=== PATIENT | male | born 1960 | race Caucasian/White ===

== ENCOUNTER 2019-04-25 01:40 | Emergency (ER) | payer BC, OTHER ==
[2019-04-25 01:48] VITALS: BP 139/87; PULSE 102; TEMP 98.1; BMI 35.3
--- NOTE | 2019-04-25 02:11 | PDOC ---
History of Present Illness - General Chief Complaint: Injury Stated Complaint: FALL Time Seen by Provider: 04/25/19 01:44 History Source: Patient Exam Limitations: No Limitations - History of Present Illness Initial Comments: 04/25/19 02:06 59 yo M s/p fall down 5 steps. states tripped over last step in the dark hit his head on the wall. no loc does not take any aspirin or other blood thinners. happened 2 hours ago. no loc no n/v no weakness. no neck or back pain. has chronic back pain, no new sxs. had one glass of wine earlier this evening. no other complaints. last tetanus 4 yrs ago Past History - Past Medical History Allergies/Adverse Reactions: Allergies Allergy/AdvReac Type Severity Reaction Status Date / Time No Known Allergies Allergy Unverified 04/25/19 01:41 Home Medications: Ambulatory Orders Amlodipine Besylate [Norvasc -] 15 mg PO DAILY 04/25/19 Hydrochlorothiazide [Hctz -] 12.5 mg PO DAILY 04/25/19 Lisinopril 10 mg PO DAILY 04/25/19 COPD: No HTN: Yes - Surgical History Abdominal Surgery: Yes (UMBLILICAL HERNIA REPAIR) - Immunization History Immunization Up to Date: Yes - Suicide/Smoking/Psychosocial Hx Smoking History: Never smoked Review of Systems - Review of Systems Constitutional: No: Chills, Diaphoresis HEENTM: No: Eye Pain Respiratory: No: Cough, Orthopnea Cardiac (ROS): No: Chest Pain Musculoskeletal: No: Back Pain, Joint Pain Integumentary: Yes: Other (laceration). No: Bruising All Other Systems: Reviewed and Negative *Physical Exam - Vital Signs Last Vital Signs Temp Pulse Resp BP Pulse Ox 98.1 F 102 H 16 139/87 98 04/25/19 01:44 04/25/19 01:44 04/25/19 01:44 04/25/19 01:44 04/25/19 01:44 - Physical Exam Comments: 04/25/19 02:07 awake alert lungs clear bilat heart rrr no mrg abd soft nt nd et wwp. left knee superficial eccymosis. abrasion. FROM no laxity.; hips pelvis stable from. no midline spinal tenderness. left forehead abrasion , laceration to eyebrow 3 cm, superficial . EOMI. GCS 15 Medical Decision Making - Medical Decision Making 04/25/19 02:08 59 yo male s/p trip and fall down 5 steps. here with laceration to left eyebrow. deneis blood thinners. no loc. happened 2 hrs ago. last tetanus 4 yrs ago. stitches x 3 to eye brow lac. no bony step off. *DC/Admit/Observation/Transfer Diagnosis at time of Disposition: Laceration - Discharge Dispostion Disposition: HOME Condition at time of disposition: Improved Decision to Admit order: No - Referrals Referrals: Jeevan Schneider [Primary Care Provider] - - Patient Instructions Printed Discharge Instructions: DI for Laceration Repair Additional Instructions: use bacitracin to wound twice daily. keep clean and dry for 2 days. return for redness swelling or any signs of infection. you were given 3 sutures today. return for suture removal in 5 days. - Post Discharge Activity
== END 2019-04-25 02:14 | disposition home or self-care (01) ==
LOC: FER 01:40
DX: S01.112A Laceration without foreign body of left eyelid and periocular area, initial encounter (principal); W18.39XA Other fall on same level, initial encounter; Y93.89 Activity, other specified; Y92.009 Unspecified place in unspecified non-institutional (private) residence as the place of occurrence of the external cause; I10 Essential (primary) hypertension
CPT/HCPCS: 99281-25

== ENCOUNTER 2019-05-05 16:44 | Emergency (ER) | payer BC | END 2019-05-05 17:16 | disposition home or self-care (01) | LOC: FER 16:44 ==

== ENCOUNTER 2020-08-03 19:42 | Emergency (ER) | payer BC | END 2020-08-03 20:09 | disposition home or self-care (01) | LOC: JVIRT 19:42 | DX: Z03.818 Encounter for observation for suspected exposure to other biological agents ruled out (principal) | CPT/HCPCS: C9803; Q3014-GT; U0003 ==

== ENCOUNTER 2024-01-17 17:15 | Emergency (ER) | payer BC ==
[2024-01-17 17:45] VITALS: TEMP 98.3; BMI 34.3
[2024-01-17] MEDS: SODIUM CHLORIDE 1,000 ML IV STA (18:00)
[2024-01-17 18:08] LABS: HEMATOCRIT 44.4 % (35.4-49); MCH 34.4 pg (25.7-33.7); MCHC 33.7 g/dl (32.0-35.9); MEAN PLT VOLUME 9.5 fl (7.5-11.1); PLATELET COUNT 148.5 10^3/uL (134-434); RBC 4.35 10^6/uL (4.00-5.60); RDW 14.1 % (11.9-15.9); WHITE BLOOD COUNT 4.3 10^3/uL (4.0-10.8)
[2024-01-17 18:19] LABS: INR 1.01 (0.83-1.09); PROTHROMBIN TIME (PATIENT) 11.5 SEC (9.7-13.0)
[2024-01-17 18:30] VITALS: BP 159/90; RESP 16
[2024-01-17 18:49] LABS: ALBUMIN 4.5 g/dl (3.4-5.0); BILIRUBIN,TOTAL 0.5 mg/dl (0.2-1); CALCIUM 9.2 mg/dl (8.5-10.1); CREATININE 0.7 mg/dl (0.6-1.3); MAGNESIUM 1.7 mg/dL (1.8-2.4); POTASSIUM 3.7 mmol/L (3.5-5.1); TOT PROT 7.4 g/dl (6.4-8.2)
[2024-01-17 19:01] LABS: PLATELET ESTIMATE ADEQUATE
== END 2024-01-17 19:21 | disposition home or self-care (01) ==
LOC: FER 17:15
PROC: 3E0337Z Introduction of Electrolytic and Water Balance Substance into Peripheral Vein, Percutaneous Approach (ICD-10-PCS; principal; 2024-01-17)
DX: R11.2 Nausea with vomiting, unspecified (principal)
CPT/HCPCS: 36415; 80053; 82550; 82553; 83735; 84484; 85027; 85610; 93005; 99284-25

== ENCOUNTER 2024-01-18 19:43 | Emergency (ER) | payer BC ==
[2024-01-18 19:53] VITALS: BP 180/92; PULSE 94; RESP 17; TEMP 98.1; BMI 34.3
[2024-01-18 20:16] LABS: HEMATOCRIT 47.7 % (35.4-49); HEMOGLOBIN 15.6 G/dL (11.7-16.9); MCH 33.4 pg (25.7-33.7); MCHC 32.7 g/dl (32.0-35.9); MEAN CELL VOLUME 102.2 fl (80-96); MEAN PLT VOLUME 9.9 fl (7.5-11.1); PLATELET COUNT 150.1 10^3/uL (134-434); RBC 4.67 10^6/uL (4.00-5.60); RDW 14.4 % (11.9-15.9); WHITE BLOOD COUNT 3.1 10^3/uL (4.0-10.8)
[2024-01-18 20:36] LABS: ALBUMIN 4.7 g/dl (3.4-5.0); BILIRUBIN,TOTAL 0.4 mg/dl (0.2-1); CALCIUM 9.3 mg/dl (8.5-10.1); CREATININE 0.7 mg/dl (0.6-1.3); POTASSIUM 3.8 mmol/L (3.5-5.1); TOT PROT 7.7 g/dl (6.4-8.2)
[2024-01-18] MEDS: FOLIC ACID INJECTION - 1 MG, THIAMINE HCL 100 MG, MULTIVIT INJECTION ADULT 10 ML in SOD... IVPB ONE (20:37)
[2024-01-18 20:53] LABS: MACROCYTOSIS 1+
[2024-01-18 20:54] LABS: PLATELET ESTIMATE ADEQUATE
[2024-01-18] MEDS ORDERED: LISINOPRIL 10 MG TABLET ONE (21:17)
[2024-01-18] MEDS: LISINOPRIL 10 MG TABLET PO ONE (21:18)
[2024-01-18 22:07] LABS: EPITHELIAL CELLS 0-5 /hpf
== END 2024-01-18 22:32 | disposition home or self-care (01) ==
LOC: FER 19:43
PROC: 3E033GC Introduction of Other Therapeutic Substance into Peripheral Vein, Percutaneous Approach (ICD-10-PCS; principal; 2024-01-18)
PROC: 3E033GC Introduction of Other Therapeutic Substance into Peripheral Vein, Percutaneous Approach (ICD-10-PCS; 2024-01-18)
PROC: 3E033GC Introduction of Other Therapeutic Substance into Peripheral Vein, Percutaneous Approach (ICD-10-PCS; 2024-01-18)
PROC: 3E033GC Introduction of Other Therapeutic Substance into Peripheral Vein, Percutaneous Approach (ICD-10-PCS; 2024-01-18)
PROC: 3E033GC Introduction of Other Therapeutic Substance into Peripheral Vein, Percutaneous Approach (ICD-10-PCS; 2024-01-18)
PROC: 3E033GC Introduction of Other Therapeutic Substance into Peripheral Vein, Percutaneous Approach (ICD-10-PCS; 2024-01-18)
PROC: 3E033GC Introduction of Other Therapeutic Substance into Peripheral Vein, Percutaneous Approach (ICD-10-PCS; 2024-01-18)
DX: R41.3 Other amnesia (principal)
CPT/HCPCS: 36415; 70450-TC; 80053; 81003; 81015; 84436; 84443; 85025; 87086; 99284-25